=== PATIENT | male | born 1960 | race Caucasian/White ===

== ENCOUNTER 2018-07-01 13:39 | Emergency (ER) | payer OTHER, SELFPAY ==
[2018-07-01 13:42] VITALS: BP 151/89; PULSE 87; RESP 15; TEMP 36.3; O2SAT 96; BMI 31.7
--- NOTE | 2018-07-01 13:45 | DI.RAD.S_ITS ---
PROCEDURE: XR ELBOW RT MIN 3V INDICATIONS: elbow pain TECHNIQUE: 3 views of the elbow were acquired. COMPARISON: None. FINDINGS: Bones: No fractures or dislocations. No suspicious bony lesions. Soft tissues: Minimal elbow joint effusion. No suspicious soft tissue calcifications. IMPRESSION: Minimal effusion. No visualized acute fracture or dislocation. However, if clinical concern and/or pain persist, short interval imaging followup in 7-10 days is recommended, as occult injury cannot be definitively excluded. Dictated by: Jesenia Aguero M.D. on 07/01/2018 at 14:09 Approved by: Jesenia Aguero M.D. on 07/01/2018 at 14:09
--- NOTE | 2018-07-01 14:17 | ED.UPPEXIN ---
HPI - Extremity Injury (Upper) <ADRIANNE Brunner Last Filed: 07/01/18 21:53> General Chief Complaint: Extremity Injury, Upper Stated Complaint: RT ELBOW POSSIBLE DISLOCATION Time Seen by Provider: 07/01/18 14:05 Source: patient Mode of arrival: ambulatory Limitations: no limitations History of Present Illness HPI narrative: 58-year-old male with prior history of renal cancer and is a nonsmoker here for complaint of pain to his right elbow. Pain started earlier today when he was helping a somebody pushed their vehicle out of the snow when he felt a pop and pain into his right elbow. Pain is limited to the right elbow area. He does have range of motion of the right elbow he does report increased pain with supination and and pronation of the arm. He denies any direct trauma to the elbow area. He denies any other injuries or complaints at Related Data Allergies Allergy/AdvReac Type Severity Reaction Status Date / Time No Known Drug Allergies Allergy Verified 07/01/18 13:42 Review of Systems <ADRIANNE Brunner Last Filed: 07/01/18 21:53> Constitutional Denies chills, Denies fever(s), Denies lethargy and Denies weakness Eyes Denies change in vision, Denies eye discharge, Denies irritation and Denies loss of vision ENT Ears, Nose, Mouth, and Throat: Denies change in voice, Denies neck pain and Denies sore throat Cardiovascular Denies chest pain, Denies irregular heart rhythm, Denies lightheadedness, Denies palpitations, Denies dyspnea, Denies dyspnea on exertion and Denies orthopnea Respiratory Denies cough, Denies dyspnea, Denies dyspnea on exertion and Denies wheezing Gastrointestinal Gastrointestinal: Denies abdominal pain, Denies change in bowel habits, Denies diarrhea, Denies nausea and Denies vomiting Genitourinary Denies hematuria, Denies flank pain, Denies urinary incontinence and Denies urinary urgency Musculoskeletal Denies neck pain Comments: Right elbow pain Integumentary/Breasts Denies pruritus, Denies erythema, Denies rash and Denies wounds Neurologic Denies confusion, Denies loss of vision and Denies weakness Psychiatric Denies anxiety, Denies confusion, Denies depression, Denies homicidal ideation and Denies suicidal ideation Endocrine Denies palpitations Allergic/Immunologic Denies wheezing PFSH <ADRIANNE Brunner - Last Filed: 07/01/18 21:53> Social History Smoking Status: Never smoker Social History Smoking Status: Never smoker Exam <ADRIANNE Brunner - Last Filed: 07/01/18 21:53> Initial Vital Signs Initial Vital Signs: Vital Signs Temperature 97.3 F L 07/01/18 13:42 Pulse Rate 87 07/01/18 13:42 Respiratory Rate 15 07/01/18 13:42 Blood Pressure 151/89 H 07/01/18 13:42 Pulse Oximetry 96 07/01/18 13:42 Const General: cooperative and well developed Nutritional Appearance: well nourished Orientation: alert, awake, oriented x3 and not confused HENMT Mouth: oral mucosae normal and moist mucous membranes Eyes General: appearance normal, both eyes and all related structures Eyelids: eyelids normal Conjunctivae: conjunctivae normal Sclera: sclerae normal Pupils: PERRL EOM: EOM intact bilaterally Neck Neck: normal visual inspection, trachea midline, No lymphadenopathy, No midline deformity and No JVD Lymphatic: No lymphedema Chest Chest: normal inspection of the chest Resp Effort & Inspection: normal respiratory effort, able to speak in complete sentences, no respiratory distress and no use of accessory muscles Auscultation: clear to auscultation bilaterally, no rales, no rhonchi and no wheezes Cardio Rate: regular rate Rhythm: regular rhythm Heart Sounds: no click, no gallops, no murmurs and no rubs Pulses: normal peripheral pulses GI Inspection: non-distended Palpation: soft, no hepatosplenomegaly, No guarding, No pulsatile mass and No tender Auscultation: normal bowel sounds Skin General: no rashes or lesions noted, No jaundice and No petechiae Neuro General: alert, oriented x3, gait normal and no focal motor deficits Speech: speech normal Extrem Other: Right elbow with no signs of trauma. No ecchymosis. No swelling. Full range of motion. Distal sensation is intact. Distal pulses are intact. <Jovani Humphrey DO - Last Filed: 07/02/18 18:23> Initial Vital Signs Initial Vital Signs: Vital Signs Temperature 97.3 F L 07/01/18 13:42 Pulse Rate 87 07/01/18 13:42 Respiratory Rate 15 07/01/18 13:42 Blood Pressure 151/89 H 07/01/18 13:42 Pulse Oximetry 96 07/01/18 13:42 Course <ADRIANNE Brunner - Last Filed: 07/01/18 21:53> Orders Ordered: ED Orders 07/01/18 13:45 XR elbow RT min 3V Stat Vital Signs - 8 hr 07/01/18 14:50 Pulse Rate 83 Respiratory Rate 18 Blood Pressure 141/91 H Pulse Oximetry 100 <Jovani Humphrey DO - Last Filed: 07/02/18 18:23> Orders Ordered: ED Orders 07/01/18 13:45 XR elbow RT min 3V Stat Vital Signs - 8 hr 07/01/18 14:50 Pulse Rate 83 Respiratory Rate 18 Blood Pressure 141/91 H Pulse Oximetry 100 MDM - Extremity Injury (Upper) <ADRIANNE Brunner - Last Filed: 07/01/18 21:53> Imaging Data Right elbow: Radiologist's impression: [place] [address] XRay Report Signed Patient: JOHN KEENE#: [id number] : 9Acct:[id number] Age/Sex: 58 / MDate of Service: 07/01/18 Loc: ED Accession Number: [id number] Procedure: XR elbow RT min 3V Ordering Provider: Jovani Humphrey D.O. PROCEDURE: XR ELBOW RT MIN 3V INDICATIONS: elbow pain TECHNIQUE: 3 views of the elbow were acquired. COMPARISON: None. FINDINGS: Bones: No fractures or dislocations. No suspicious bony lesions. Soft tissues: Minimal elbow joint effusion. No suspicious soft tissue calcifications. IMPRESSION: Minimal effusion. No visualized acute fracture or dislocation. However, if clinical concern and/or pain persist, short interval imaging followup in 7-10 days is recommended, as occult injury cannot be definitively excluded. Dictated by: Jesenia Aguero M.D. on 07/01/2018 at 14:09 Approved by: Jesenia Aguero M.D. on 07/01/2018 at 14:09 [facility] Narrative Medical decision making narrative: X-ray of the right elbow was obtained was negative for any acute fractures or dislocations. Signs and symptoms presents as sprain of the right elbow. He is placed in a sling for comfort and support. [id number] Tylenol or Motrin as needed for any discomfort. Ice and elevation help with any swelling. He does not have a primary care provider at this timeframe he is referred Orthopedics to follow up next week if continued pain and discussion of MRI for further evaluation. For any worsening symptoms return to the emergency room. Discharge Plan Departure Patient Disposition: Home Clinical Impression: Sprain of right elbow Qualifiers: Encounter type: initial encounter Qualified Code(s): S53.401A - Unspecified sprain of right elbow, initial encounter Discharge Date/Time: 07/01/18 14:51 Interventions: ED Discharge Assessment Last Done: 07/01/18 14:50 Instructions: DI for Elbow Sprain Activity Restrictions/Additional Instructions: X-ray the right elbow was obtained was negative for any dislocations or fractures. Signs and symptoms presents as a sprain into the right elbow. You are placed in a sling for comfort and support use as directed until able use arm without discomfort. Use [id number] Tylenol or Motrin as needed for any discomfort. Ice and elevation to help with any swelling. Follow up with Orthopedics next week if still having discomfort. Call the number and number provided to schedule follow-up appointment. May need to have MRI for further evaluation. For any worsening symptoms return to the emergency room. Referrals: [facility] [Provider Group] <Jovani Humphrey DO - Last Filed: 07/02/18 18:23> [facility] ED Attending Laure Attestation: I was immediately available in the department for consultation. Documentation has been reviewed. I agree with assessment and plan.
--- NOTE | 2018-07-01 14:38 | ED_ITS ---
HPI - Extremity Injury (Upper) <ADRIANNE Brunner - Last Filed: 07/01/18 21:53> General Chief Complaint: Extremity Injury, Upper Stated Complaint: RT ELBOW POSSIBLE DISLOCATION Time Seen by Provider: 07/01/18 14:05 Source: patient Mode of arrival: ambulatory Limitations: no limitations History of Present Illness HPI narrative: 58-year-old male with prior history of renal cancer and is a no nsmoker here for complaint of pain to his right elbow. Pain started earlier today when he was helping a somebody pushed their vehicle out of the snow when he felt a pop and pain into his right elbow. Pain is limited to the right elbow area. He does have range of motion of the right elbow he does report increased pain with supination and and pronation of the arm. He denies any direct trauma to the elbow area. He denies any other injuries or complaints at Related Data Allergies Allergy/AdvReac Type Severity Reaction Status Date / Time No Known Drug Allergies Allergy Verified 07/01/18 13:42 Review of Systems <ADRIANNE Brunner - Last Filed: 07/01/18 21:53> Constitutional Denies chills, Denies fever(s), Denies lethargy and Denies weakness Eyes Denies change in vision, Denies eye discharge, Denies irritation and Denies loss of vision ENT Ears, Nose, Mouth, and Throat: Denies change in voice, Denies neck pain and Denies sore throat Cardiovascular Denies chest pain, Denies irregular heart rhythm, Denies lightheadedness, Denies palpitations, Denies dyspnea, Denies dyspnea on exertion and Denies orthopnea Respiratory Denies cough, Denies dyspnea, Denies dyspnea on exertion and Denies wheezing Gastrointestinal Gastrointestinal: Denies abdominal pain, Denies change in bowel habits, Denies diarrhea, Denies nausea and Denies vomiting Genitourinary Denies hematuria, Denies flank pain, Denies urinary incontinence and Denies urinary urgency Musculoskeletal Denies neck pain Comments: Right elbow pain Integumentary/Breasts Denies pruritus, Denies erythema, Denies rash and Denies wounds Neurologic Denies confusion, Denies loss of vision and Denies weakness Psychiatric Denies anxiety, Denies confusion, Denies depression, Denies homicidal ideation and Denies suicidal ideation Endocrine Denies palpitations Allergic/Immunologic Denies wheezing PFSH <ADRIANNE Brunner - Last Filed: 07/01/18 21:53> Social History Smoking Status: Never smoker Social History Smoking Status: Never smoker Exam <ADRIANNE Brunner - Last Filed: 07/01/18 21:53> Initial Vital Signs Initial Vital Signs: Vital Signs Temperature 97.3 F L 07/01/18 13:42 Pulse Rate 87 07/01/18 13:42 Respiratory Rate 15 07/01/18 13:42 Blood Pressure 151/89 H 07/01/18 13:42 Pulse Oximetry 96 07/01/18 13:42 Const General: cooperative and well developed Nutritional Appearance: well nourished Orientation: alert, awake, oriented x3 and not confused HENMT Mouth: oral mucosae normal and moist mucous membranes Eyes General: appearance normal, both eyes and all related structures Eyelids: eyelids normal Conjunctivae: conjunctivae normal Sclera: sclerae normal Pupils: PERRL EOM: EOM intact bilaterally Neck Neck: normal visual inspection, trachea midline, No lymphadenopathy, No midline deformity and No JVD Lymphatic: No lymphedema Chest Chest: normal inspection of the chest Resp Effort & Inspection: normal respiratory effort, able to speak in complete sentences, no respiratory distress and no use of accessory muscles Auscultation: clear to auscultation bilaterally, no rales, no rhonchi and no wheezes Cardio Rate: regular rate Rhythm: regular rhythm Heart Sounds: no click, no gallops, no murmurs and no rubs Pulses: normal peripheral pulses GI Inspection: non-distended Palpation: soft, no hepatosplenomegaly, No guarding, No pulsatile mass and No tender Auscultation: normal bowel sounds Skin General: no rashes or lesions noted, No jaundice and No petechiae Neuro General: alert, oriented x3, gait normal and no focal motor deficits Speech: speech normal Extrem Other: Right elbow with no signs of trauma. No ecchymosis. No swelling. Full range of motion. Distal sensation is intact. Distal pulses are intact. <Jovani Humphrey DO - Last Filed: 07/02/18 18:23> Initial Vital Signs Initial Vital Signs: Vital Signs Temperature 97.3 F L 07/01/18 13:42 Pulse Rate 87 07/01/18 13:42 Respiratory Rate 15 07/01/18 13:42 Blood Pressure 151/89 H 07/01/18 13:42 Pulse Oximetry 96 07/01/18 13:42 Course <ADRIANNE Brunner - Last Filed: 07/01/18 21:53> Orders Ordered: ED Orders 07/01/18 13:45 XR elbow RT min 3V Stat Vital Signs - 8 hr 07/01/18 14:50 Pulse Rate 83 Respiratory Rate 18 Blood Pressure 141/91 H Pulse Oximetry 100 <Jovani Humphrey DO - Last Filed: 07/02/18 18:23> Orders Ordered: ED Orders 07/01/18 13:45 XR elbow RT min 3V Stat Vital Signs - 8 hr 07/01/18 14:50 Pulse Rate 83 Respiratory Rate 18 Blood Pressure 141/91 H Pulse Oximetry 100 MDM - Extremity Injury (Upper) <ADRIANNE Brunner - Last Filed: 07/01/18 21:53> Imaging Data Right elbow: Radiologist's impression: [address] [address] XRay Report Signed Patient: JOHN KEENE#: [id number] : 1960cct:[id number] Age/Sex: 58 / MDate of Service: 07/01/18 Loc: ED Accession Number: [id number] Procedure: XR elbow RT min 3V Ordering Provider: Jovani Humphrey D.O. PROCEDURE: XR ELBOW RT MIN 3V INDICATIONS: elbow pain TECHNIQUE: 3 views of the elbow were acquired. COMPARISON: None. FINDINGS: Bones: No fractures or dislocations. No suspicious bony lesions. Soft tissues: Minimal elbow joint effusion. No suspicious soft tissue calcifications. IMPRESSION: Minimal effusion. No visualized acute fracture or dislocation. However, if clinical concern and/or pain persist, short interval imaging followup in 7-10 days is recommended, as occult injury cannot be definitively excluded. Dictated by: Jesenia Aguero M.D. on 07/01/2018 at 14:09 Approved by: Jesenia Aguero M.D. on 07/01/2018 at 14:09 [facility] Narrative Medical decision making narrative: X-ray of the right elbow was obtained was negative for any acute fractures or dislocations. Signs and symptoms presents as sprain of the right elbow. He is placed in a sling for comfort and support. [id number]-[id number] Tylenol or Motrin as needed for any discomfort. Ice and elevation help with any swelling. He does not have a primary care provider at this timeframe he is referred Orthopedics to follow up next week if continued pain and discussion of MRI for further evaluation. For any worsening symptoms return to the emergency room. Discharge Plan Departure Patient Disposition: Home Clinical Impression: Sprain of right elbow Qualifiers: Encounter type: initial encounter Qualified Code(s): S53.401A - Unspecified sprain of right elbow, initial encounter Discharge Date/Time: 07/01/18 14:51 Interventions: ED Discharge Assessment Last Done: 07/01/18 14:50 Instructions: DI for Elbow Sprain Activity Restrictions/Additional Instructions: X-ray the right elbow was obtained was negative for any dislocations or fractures. Signs and symptoms presents as a sprain into the right elbow. You are placed in a sling for comfort and support use as directed until able use arm without discomfort. Use [id number] Tylenol or Motrin as needed for any discomfort. Ice and elevation to help with any swelling. Follow up with Orthopedics next week if still having discomfort. Call the number and number provided to schedule follow-up appointment. May need to have MRI for further evaluation. For any worsening symptoms return to the emergency room. Referrals: [facility] [Provider Group] <Jovani Humphrey DO - Last Filed: 07/02/18 18:23> [facility] Laure Attestation: I was immediately available in the department for consultation. Documentation has been reviewed. I agree with assessment and plan.
[2018-07-01 14:50] VITALS: BP 141/91; PULSE 83; RESP 18; O2SAT 100
== END 2018-07-01 14:51 | disposition home or self-care (01) ==
PROVIDERS: Emergency Provider Nurse Practitioner Family
DX: S53.401A Unspecified sprain of right elbow, initial encounter (principal); X50.0XXA Overexertion from strenuous movement or load, initial encounter
CPT/HCPCS: 73080; 99282; 99283

== ENCOUNTER → 2019-02-17 09:33 | Outpatient (CLI) | payer OTHER, SELFPAY ==
[2019-02-17 10:37] LABS: Hematocrit 38.2 % (41-53); Hemoglobin 13.4 g/dL (13.5-17.5); Mean Corpuscular HGB Conc 35.1 % (30-36); Mean Corpuscular Hemoglobin 35.5 PG (26-34); Mean Corpuscular Volume 101.3 fL (80-100); Platelet Count 145 X10^3/uL (150-400); Red Blood Cell Count 3.77 X10^6/uL (4.5-5.9); Red Cell Distribution Width 13.9 % (11.6-14.8); White Blood Cell Count 5.8 X10^3/uL (4.5-11.0)
[2019-02-17 11:10] LABS: Alanine Aminotransferase 48 IU/L (21-72); Albumin Globulin Ratio 1.2 (1.0-2.8); Alkaline Phosphatase 81 U/L (38-126); Aspartate Aminotransferase 42 IU/L (17-59); BUN Creatinine Ratio 11.4 (6-22); Bilirubin Total 0.8 mg/dL (0.2-1.3); Blood Urea Nitrogen 16 mg/dL (9-20); Carbon Dioxide 25 mmol/L (22-32); Chloride 106 mmol/L (98-107); Cholesterol 163 mg/dL (140-199); Estimated Glomerular Filt Rate 51.9 mL/min (>60); Globulin 3.3 g/dL (1.7-4.1); Glucose 100 mg/dL (70-100); HDL Cholesterol 51 mg/dL (40-60); HEMOLYSIS < 15 (0-50); LDL Cholesterol Calculated 83 mg/dL (<100); Potassium 4.4 mmol/L (3.4-5.1); Sodium 140 mmol/L (137-145); Total Protein 7.3 g/dL (6.3-8.2); Triglycerides 144 mg/dL (35-150); Uric Acid 7.8 mg/dL (3.5-8.5)
== END ==
PROVIDERS: Visit Provider Nurse Practitioner Family
DX: Z00.00 Encounter for general adult medical examination without abnormal findings (principal); Z13.6 Encounter for screening for cardiovascular disorders; M10.9 Gout, unspecified
CPT/HCPCS: 80053; 80061; 84550; 85027

== ENCOUNTER → 2019-02-24 14:58 | Outpatient (CLI) | payer OTHER, SELFPAY | DX: Z23 Encounter for immunization (principal) | CPT/HCPCS: 90471; 90686 ==

== ENCOUNTER → 2020-02-23 19:14 | Outpatient (CLI) | payer OTHER, SELFPAY | PROVIDERS: PCP Nurse Practitioner Family; Referring Provider Internal Medicine; Visit Provider Internal Medicine | DX: Z23 Encounter for immunization (principal) | CPT/HCPCS: 90471; 90686 ==

== ENCOUNTER → 2020-05-25 12:39 | Outpatient (CLI) | payer OTHER, SELFPAY ==
[2020-05-25] MEDS: COVID-19 VACC(MODERNA-1)/PF 100 MCG/0.5 ML VIAL IM (12:43)
== END ==
PROVIDERS: PCP Nurse Practitioner Family; Visit Provider Internal Medicine
DX: Z23 Encounter for immunization (principal)
CPT/HCPCS: 0011A; 91301

== ENCOUNTER → 2020-06-21 12:31 | Outpatient (CLI) | payer OTHER, SELFPAY ==
[2020-06-21] MEDS: COVID-19 VACC #2, MRNA(MOD) 100 MCG/0.5 ML VIAL IM (12:34)
== END ==
PROVIDERS: PCP Nurse Practitioner Family; Visit Provider Internal Medicine
DX: Z23 Encounter for immunization (principal)
CPT/HCPCS: 0012A; 91301

== ENCOUNTER → 2020-09-08 11:02 | Outpatient (CLI) | payer OTHER, SELFPAY ==
[2020-09-08 11:30] LABS: Add Manual Diff / Slide Review NO; Basophils Absolute Auto 0 /uL (0-100); Basophils Percent Auto 0.4 % (0-2); Eosinophils Absolute Auto 0 /uL (0-450); Eosinophils Percent Auto 0.3 % (2-4); Hematocrit 40.5 % (41-53); Hemoglobin 14.2 g/dL (13.5-17.5); Lymphocytes Absolute Auto 700 /uL (1100-4500); Lymphocytes Percent Auto 12.3 % (25-40); Mean Corpuscular Hemoglobin 34.8 PG (26-34); Mean Corpuscular Volume 99.3 fL (80-100); Monocytes Absolute Auto 400 /uL (0-900); Monocytes Percent Auto 7.4 % (3-14); Neutrophils Absolute Auto 4800 /uL (1500-7000); Neutrophils Percent Auto 79.6 % (50-75); Platelet Count 137 X10^3/uL (150-400); Red Blood Cell Count 4.08 X10^6/uL (4.5-5.9); Red Cell Distribution Width 13.5 % (11.6-14.8)
[2020-09-08 12:09] LABS: HEMOLYSIS < 15 (0-50); Iron 111 ug/dL (49-181)
[2020-09-08 12:11] LABS: Alanine Aminotransferase 27 IU/L (<50); Albumin 4.2 g/dL (3.5-5.0); Albumin Globulin Ratio 1.2 (1.0-2.8); Alkaline Phosphatase 64 U/L (38-126); Aspartate Aminotransferase 32 IU/L (17-59); BUN Creatinine Ratio 13.4 (6-22); Bilirubin Total 0.7 mg/dL (0.2-1.3); Blood Urea Nitrogen 18 mg/dL (9-20); Calcium 9.5 mg/dL (8.4-10.2); Carbon Dioxide 26 mmol/L (22-32); Chloride 105 mmol/L (98-107); Estimated Glomerular Filt Rate 54.2 mL/min (>60); Globulin 3.4 g/dL (1.7-4.1); Glucose 116 mg/dL (80-110); HEMOLYSIS < 15 (0-50); Potassium 4.3 mmol/L (3.4-5.1); Sodium 138 mmol/L (137-145); Total Protein 7.6 g/dL (6.3-8.2)
[2020-09-08 12:20] LABS: Percent Iron Saturation 35 % (20-50); Total Iron Binding Capacity 318 ug/dL (261-462); Transferrin 261 mg/dL (206-381)
[2020-09-08 12:44] LABS: Ferritin 111 ng/mL (18-464)
[2020-09-08 13:14] LABS: Folate > 20.0 ng/mL (2.76-20.0); Vitamin B12 225 pg/mL (239-931)
== END ==
PROVIDERS: PCP Nurse Practitioner Family; Referring Provider Nurse Practitioner Family; Visit Provider Nurse Practitioner Family
DX: D53.9 Nutritional anemia, unspecified (principal); R79.89 Other specified abnormal findings of blood chemistry
CPT/HCPCS: 36415; 80053; 82607; 82728; 82746; 83540; 83550; 85025

== ENCOUNTER → 2025-04-09 10:52 | Outpatient (CLI) | payer OTHER, SELFPAY ==
[2025-04-09 11:49] LABS: Add Manual Diff / Slide Review NO; Hematocrit 39.3 % (41-53); Hemoglobin 13.8 g/dL (13.5-17.5); Lymphocytes Absolute Auto 2200 /uL (1100-4500); Mean Corpuscular HGB Conc 35.1 % (30-36); Mean Corpuscular Hemoglobin 34.6 PG (26-34); Mean Corpuscular Volume 98.8 fL (80-100); Platelet Count 198 X10^3/uL (150-400)
[2025-04-09 12:11] LABS: Hemoglobin A1C% w Est Avg Glu 4.3 % (4.0-6.0)
[2025-04-09 12:39] LABS: HEMOLYSIS < 15 (0-50); Iron 148 ug/dL (49-181)
[2025-04-09 12:43] LABS: Alanine Aminotransferase 21 IU/L (<50); Albumin 4.2 g/dL (3.5-5.0); Albumin Globulin Ratio 1.3 (1.0-2.8); Alkaline Phosphatase 67 U/L (38-126); Blood Urea Nitrogen 17 mg/dL (9-20); Calcium 9.2 mg/dL (8.4-10.2); Carbon Dioxide 23 mmol/L (22-32); Chloride 109 mmol/L (98-107); Cholesterol 199 mg/dL (140-199); Estimated Glomerular Filt Rate 59 mL/min (>60); Globulin 3.2 g/dL (1.7-4.1); Glucose 111 mg/dL (70-99); HDL Cholesterol 55 mg/dL (40-60); HEMOLYSIS < 15 (0-50); Potassium 4.7 mmol/L (3.4-5.1); Sodium 142 mmol/L (137-145); Total Protein 7.4 g/dL (6.3-8.2); Triglycerides 178 mg/dL (35-150)
[2025-04-09 12:53] LABS: Percent Iron Saturation 45 % (20-50); Total Iron Binding Capacity 328 ug/dL (261-462); Transferrin 281 mg/dL (206-381)
[2025-04-09 13:17] LABS: Ferritin 113 ng/mL (18-464)
== END ==
PROVIDERS: PCP Student in an Organized Health Care Education/Training Program; Referring Provider Student in an Organized Health Care Education/Training Program; Visit Provider Student in an Organized Health Care Education/Training Program
DX: D53.9 Nutritional anemia, unspecified (principal); Z12.5 Encounter for screening for malignant neoplasm of prostate; Z85.048 Personal history of other malignant neoplasm of rectum, rectosigmoid junction, and anus; Z85.528 Personal history of other malignant neoplasm of kidney
CPT/HCPCS: 36415; 80053; 80061; 82728; 83036; 83540; 83550; 85025; G0103